=== PATIENT | female | born 1940 | race Caucasian/White ===

== ENCOUNTER 2017-09-18 16:04 | Emergency (ER) | payer MEDICARE ==
[2017-09-18 16:49] LABS: #Basophils 0.1 thou/uL (0.0-0.2); #Eosinphils 0.1 thou/uL (0.0-0.7); #Lymphocytes 1.2 thou/uL (1.20-3.40); #Monocytes 0.1 thou/uL (0.11-0.59); #Neutrophils 2.6 thou/uL (1.40-6.50); %Basophils 2.6 % (0.0-1.0); %Eosinophils 1.9 % (0.0-10.0); %Lymphocytes 28.3 % (21.0-51.0); %Monocytes 2.1 % (0.0-10.0); %Neutrophils 65.1 % (42.0-75.0); Mean Corpuscular HGB CONC 35.1 g/dL (32.0-36.0); Mean Corpuscular Hemoglobin 33.7 pg (27.0-31.0); Mean Corpuscular Volume 96.1 fL (78.0-98.0); Mean Platelet Volume 7.7 fL (7.4-10.4); Platelet Count 257 thou/uL (130-400); Red Blood Cell (RBC) Count 3.84 mill/uL (4.20-5.40); White Blood Cell (WBC) Count 4.1 thou/uL (4.8-10.8)
[2017-09-18 17:13] LABS: ALT (SGPT) 12 U/L (8-55); AST (SGOT) 15 U/L (5-34); Albumin 3.5 g/dL (3.4-4.8); Alkaline Phosphatase 93 U/L (40-150); Anion Gap 11 mmol/L (10-20); BUN (Urea Nitrogen) 23 mg/dL (9.8-20.1); Bilirubin, Total 0.5 mg/dL (0.2-1.2); Calc. Creatinine Clearance 0 mL/min (70-130); Calcium 8.5 mg/dL (7.8-10.44); Carbon Dioxide 23 mmol/L (23-31); Chloride 105 mmol/L (98-107); Estimated GFR-MDRD 71; Globulin 3.3 g/dL (2.4-3.5); Glucose 83 mg/dL (83-110); Potassium 3.9 mmol/L (3.5-5.1); Protein, Total 6.8 g/dL (6.0-8.3); Sodium 135 mmol/L (136-145)
--- NOTE | 2017-09-18 17:28 | RAD ---
CHEST ONE VIEW: 09/18/17 HISTORY: Dyspnea. Lung cancer. COMPARISON: 12/17/05. FINDINGS: The cardiac silhouette is magnified by projection. Pulmonary vasculature is unremarkable. Mediastinum is midline with aortic calcification and a right internal jugular Mediport. Focal mass-like area at the right hilum is 4.8 cm diameter. Linear parenchymal opacity projects later ally from the hilar abnormality. Increased density at the right infrahilar lesion is also favored to be related to the hilar abnormality. No pneumothorax. IMPRESSION: Given that the right sided Mediport is currently accessed, the right hilar mass and associated right lung abnormalities are likely a known clinical finding. No lobar consolidation or evidence of pneumot horax. If the right lung abnormalities have not been evaluated recently, CT should be used for charac terization. Atherosclerosis. POS: YO
[2017-09-18] MEDS ORDERED: Bacitracin Zinc 1 Packet ONE (17:29)
[2017-09-18] MEDS ORDERED: Water For Inject, Bacteriostat 0 ML ONE (17:29)
[2017-09-18] MEDS ORDERED: methylPREDNISolone Sod Succ/PF 125 MG/2 ML VIAL ONE (17:29)
== END 2017-09-18 18:14 | disposition home or self-care (01) ==
LOC: ERS 16:04
DX: L27.1 Localized skin eruption due to drugs and medicaments taken internally (principal); T45.1X5A Adverse effect of antineoplastic and immunosuppressive drugs, initial encounter; L03.115 Cellulitis of right lower limb
CPT/HCPCS: 71045; 80053; 83605; 85025; 87040; 87070; 87205; 93005; 94760; 96374; J2930